=== PATIENT | male | born 1980 | race Caucasian/White ===

== ENCOUNTER 2016-10-19 22:10 | Emergency (ER) | payer OTHER ==
[~2016-10-19] VITALS: Ht 165.1 cm; Wt 77.0 kg
[2016-10-19 22:37] VITALS: TEMP 36.9; Ht 165.1 cm; Wt 77.0 kg
[2016-10-19] MEDS ORDERED: MULT-1073 PO (23:02)
[2016-10-19] MEDS ORDERED: CEPH500C PO (23:53)
[2016-10-19] MEDS ORDERED: SULF800T23 PO (23:53)
[2016-10-20] MEDS ORDERED: NORCO 5/325MG HOME PACK PO ONE
[2016-10-20] MEDS ORDERED: SEPTRA DS HOME PACK 1 EA VIAL PO ONE
[2016-10-20] MEDS ORDERED: CEPHALEXIN 500MG HOME PACK 1 EA BTL PO ONE
[2016-10-20 00:11] VITALS: BP 149/79; PULSE 80; O2SAT 94
--- NOTE | 2016-10-21 01:00 | EMERGENCY ROOM VISIT NOTE ---
History First contact with patient: 23:39 Chief Complaint: WOUND INFECTION Stated Complaint: CUTY ON LEFT HAND, POSSIBLY INFECTED History of Present Illness The patient is a 36 year old male who presents to the Emergency Room with complaints of possible infection to his left hand. The patient suffered laceration over the second MCP joint from a grinder operator more than a week ago. The patient has been treating himself at home using bandages, and he states that the laceration was nearly fully healed. He states that over the past 48 hours it has become swollen in size, and reopened. He did have some whitish drainage from the wound. He is able to use his hand and open and close his fingers without difficulty. He has not had fever or chills. He believes his tetanus is up-to-date. He rates his discomfort a 7/10. He is not diabetic. Review of Systems More than 10 systems were reviewed and otherwise negative with the exception of history of present illness. Past Medical/Surgical History Medical Problems: (1) No significant past medical history Surgical Problems: (1) No history of previous surgery Family History FH: cancer FH: diabetes mellitus FH: hypertension Social History Smoking Status: Never Smoker Alcohol Use: none Marital Status: Occupation Status: employed Current/Historical Medications Scheduled Cephalexin Monohydrate (Keflex), 500 MG PO TID Multiple Vitamins W/ Minerals (Multivitamin Mens), 1 TAB PO DAILY Sulfamethoxazole-Trimethoprim (Bactrim Ds 800MG/160MG), 1 TAB PO BID Physical Exam Vital Signs Date Time Temp Pulse Resp B/P (MAP) Pulse Ox O2 Delivery O2 Flow Rate FiO2 10/20/16 00:11 80 20 149/79 94 10/19/16 22:37 36.9 81 20 155/97 93 Room Air Pain Rating (0-10): 4.0 Physical Exam VITALS: Vitals are noted on the nurse's note and reviewed by myself. Vital signs stable. GENERAL: Well-developed, well-nourished, white male, who is in no acute distress and resting comfortably. Patient is cooperative with the examination. HEART: Regular rate and rhythm without murmurs gallops or rubs. LUNGS: Clear to auscultation bilaterally without wheezes, rales or rhonchi. No retractions or accessory muscle use. MUSCULOSKELETAL: There is an area consistent with draining abscess over the left second metacarpal. There is overlying laceration that has dehisced. Drainage was obtained and sent for culture. The patient has full sensation and range of motion of his digits. Teacher Aide Clerical strength is 5/5. No lymphangitic streaking. Medical Decision & Procedures Medications Administered Medications (Trade) Dose Ordered Sig/Gwendolyn Route Start Time Stop Time Status Last Admin Dose Admin Trimethoprim/ Sulfamethoxazole (Sulfameth/ Trimeth Ds 800/ 160MG Home Pack) 1 homepack UD ONCE PO 10/20/16 00:00 10/20/16 00:01 DC 10/20/16 00:07 1 HOMEPACK Cephalexin Monohydrate (Keflex 500MG Home Pack) 1 homepack NOW ONCE PO 10/20/16 00:00 10/20/16 00:01 DC 10/20/16 00:07 1 HOMEPACK Acetaminophen/ Hydrocodone Bitart (Largo 5/325mg Home Pack) 1 homepack UD ONCE PO 10/20/16 00:00 10/20/16 00:01 DC 10/20/16 00:06 1 HOMEPACK ED Course Physical exam and history were performed. Nursing notes, EMR, and Medication List were personally reviewed. Patient appears to have an infected laceration of the left hand. The patient does not appear toxic. No exam findings consistent with tenosynovitis or joint infection. Culture was obtained and sent to the lab. The patient was started on Bactrim and Keflex. He will need a recheck on a short interval, preferably within 36-48 hours. He was asked to try to follow with his PCP, but certainly may return to the ER if this is not possible. The patient was asked to return sooner if he has worsening of symptoms. He was otherwise invited back to the ER with any new, worsening, or concerning symptoms. The chart was completed utilizing [employer] Speech Voice Recognition Software. Grammatical errors, random word insertions, pronoun errors, and incomplete sentences are an occasional consequence of this system due to software limitations, ambient noise, and hardware issues. Any formal questions or concerns about the content, text, or information contained within the body of this dictation should be directly addressed to the provider for clarification. . Medical Decision Differential diagnosis: Etiologies such as cellulitis, abscess, MRSA infection, DVT, necrotizing fasciitis, dermatitis, drug eruption, as well as others were entertained.. Medication Reconcilliation Current Medication List: was personally reviewed by me Blood Pressure Screening Patient's blood pressure: Elevated blood pressure Blood pressure disposition: Elevated BP felt to be situational Impression Primary Impression: Infected laceration Departure Information Dispostion Home / Self-Care Condition GOOD Prescriptions Cephalexin Monohydrate (Keflex) 500 Mg Cap 500 MG PO TID for 9 Days, #27 CAP Prov: Brendan Carrillo PA-C 10/19/16 Sulfamethoxazole-Trimethoprim (Bactrim Ds 800MG/160MG) 1 Tab Tab 1 TAB PO BID for 9 Days, #18 TAB Prov: Brendan Carrillo PA-C 10/19/16 Forms HOME CARE DOCUMENTATION FORM, IMPORTANT VISIT INFORMATION Patient Instructions My [facility] Additional Instructions You were seen and evaluated today on an emergency basis only. This is not a substitute for, or an effort to provide, complete comprehensive medical care. It is not possible to recognize and treat all injuries or illnesses in a single emergency department visit. For this reason it is recommended that you followup with your primary care physician or back in the emergency department in 36-48 hours for recheck of your infection. Trimethoprim-Sulfamethoxazole(Bactrim DS): Take one pill twice daily for 10 days for your skin infection. All antibiotics can cause diarrhea. If this occurs and you feel worse or it does not resolve in 1-2 days follow up with your doctor or return to the Emergency Department as this could be signs of serious underlying problems. Any medication can cause an allergic reaction, stop the pills immediately and return to the ER for rash, hives, breathing difficulties, or swelling. Cephalexin(Keflex) 500mg: Take one pill 3 times daily for 10 days for your skin infection. All antibiotics can cause diarrhea. If this occurs and you feel worse or it does not resolve in 1-2 days follow up with your doctor or return to the Emergency Department as this could be signs of serious underlying problems. Any medication can cause an allergic reaction, stop the pills immediately and return to the ER for rash, hives, breathing difficulties, or swelling. Largo (hydrocodone/acetaminophen) 5/325 mg (homepack) every 6 hours as needed for worsening breakthrough pain. Do not drink or drive on [place]. This medication will likely make you tired. Do not take Largo and Tylenol at the same time as both contain acetaminophen. Largo may cause constipation. You may wish to take an antd-cdr-ertiaem stool softener like Colace if this occurs. You are welcome to return to the emergency department anytime with new, worsening, or concerning symptoms.
== END 2016-10-20 00:14 | disposition home or self-care (01) ==
LOC: C.EDB 22:11 → C.EDA 10-20 00:14
DX: L08.9 Local infection of the skin and subcutaneous tissue, unspecified (principal); Z82.49 Family history of ischemic heart disease and other diseases of the circulatory system; Z83.3 Family history of diabetes mellitus